=== PATIENT | female | born 1975 | race African-American/Black ===

== ENCOUNTER 2019-06-20 11:07 | Emergency (ER) | payer SELFPAY ==
[~2019-06-20] VITALS: Ht 170.2 cm; Wt 170.0 kg
[2019-06-20 13:03] VITALS: BP 166/118
== END 2019-06-20 13:04 | disposition left against medical advice (07) ==
LOC: ER 11:07
DX: Z53.21 Procedure and treatment not carried out due to patient leaving prior to being seen by health care provider (principal)
CPT/HCPCS: 81025